=== PATIENT | male | born 1990 | race Caucasian/White ===

== ENCOUNTER → 2018-07-13 | Outpatient (CLI) | payer OTHER ==
[~2018-07-13] MED LIST: CEP500 PO; LORA-674 PO
--- NOTE | 2018-07-13 11:41 | RADIOLOGY IMAGING REPORT ---
FACILITY: [facility] PATIENT NAME: Yuri Pagan : 1990 MR: [id number] V: [id number] EXAM DATE: ORDERING PHYSICIAN: TESSY MARIN TECHNOLOGIST: Location: [facility] [place] Patient: Yuri Pagan : 1990 Visit/Account:[id number] Date of Sevice: 07/13/2018 EXAMINATION: Left hand series, 3 views 07/13/2018 10:10 AM HISTORY: Hyperextended left thumb while working yesterday COMPARISON: None FINDINGS: Visualized bony structures are intact and anatomically aligned without fracture or other a cute osseous abnormality evident. IMPRESSION: Negative exam. Report Dictated By: Andrea Springer MD at 07/13/2018 11:37 AM Report E-Signed By: Andrea Springer MD at 07/13/2018 11:38 AM [id number]
== END ==
LOC: RAD 09:59
PROVIDERS: ATTEND Nurse Practitioner Primary Care
DX: M79.642 Pain in left hand (principal)